=== PATIENT | female | born 1945 | race Caucasian/White ===

== ENCOUNTER 2018-01-22 09:19 | Day surgery (SDC) | payer OTHER ==
[2018-01-14 13:05] VITALS: BMI 26.5
--- NOTE | 2018-01-22 07:53 | HP ---
History & Physical Update - History History: No Change - Physical Physical: No Change - Assessment Assessment: No Change - Plan Plan: No Change (Initial H&P is located in her paper chart. No new complaints or medications. Lumbar back pain with associated LLE numbness/tingling. Here today for elective L5/S1 laminectomy)
[2018-01-22] MEDS ORDERED: oxyCODONE HCL 10 MG SUSTAINED ACTING TABLET PO STA (10:14)
[2018-01-22] MEDS ORDERED: DEXAMETHASONE SOD PHOSPHATE/PF 10 MG/ML SDV ONE (10:36)
[2018-01-22] MEDS ORDERED: BUPIVACAINE HCL/PF 2.5 MG/ML - 30 ML VIAL IJ ONE (10:37)
[2018-01-22] MEDS ORDERED: MIDAZOLAM HCL 2 MG/2 ML SINGLE DOSE VIAL ONE (10:37)
[2018-01-22] MEDS ORDERED: BUPIVACAINE HCL/PF (5 MG/ML) 30 ML VIAL IJ ONE (10:37)
[2018-01-22] MEDS ORDERED: PROMETHAZINE HCL 25 MG/1 ML VIAL IVPUSH PRN (10:38)
[2018-01-22] MEDS ORDERED: ONDANSETRON 4 MG/2 ML VIAL IVPUSH PRN (10:38)
[2018-01-22] MEDS ORDERED: oxyCODONE HCL 5 MG TABLET PO PRN (10:38)
[2018-01-22] MEDS ORDERED: LACTATED RINGERS SOLUTION 1,000 ML IV SCH (10:45)
[2018-01-22] MEDS ORDERED: ONDANSETRON 4 MG/2 ML VIAL ONE (10:55)
[2018-01-22] MEDS ORDERED: DESFLURANE GAS 240 ML BOTTLE IH ONE (10:57)
[2018-01-22] MEDS ORDERED: SEVOFLURANE 250 ML BTL ONE (10:58)
[2018-01-22] MEDS ORDERED: LIDOCAINE 1%/EPI 1:100000 (20 ML MULTI DOSE VIAL) ONE (11:20)
[2018-01-22] MEDS ORDERED: THROMBIN (BOVINE) 5,000 UNIT VIAL TP ONE (11:20)
[2018-01-22] MEDS ORDERED: GUM MASTIC/STORAX/MSAL/ALCOHOL 1 DRP DROPSBTL MC ONE (11:20)
[2018-01-22] MEDS ORDERED: methylPREDNISolone ACET (DEPO) 40 MG/1 ML VIAL ONE (11:20)
[2018-01-22] MEDS ORDERED: ePHEDrine SULFATE 50 MG/1 ML AMPULE ONE (11:45)
[2018-01-22] MEDS ORDERED: PHENYLEPHRINE HCL 10 MG/1 ML SINGLE DOSE VIAL ONE (11:47)
[2018-01-22] MEDS ORDERED: ceFAZolin SODIUM 1 GM VIAL ONE (11:51)
[2018-01-22] MEDS ORDERED: PROPOFOL 20 ML ONE ×2 (12:13→12:15)
--- NOTE | 2018-01-22 13:21 | OP ---
Operative Note - Note: Operative Date: 01/22/18 Pre-Operative Diagnosis: Lumbar stenosis with radiculopthy Operation: L5/S1 laminectomy, left discetomy Post-Operative Diagnosis: Same as Pre-op Surgeon: Garrick Sierra Civil Service Clerk: Carlos Jackson Anesthesiologist/VOCATIONAL NURSE LVN: Nas Willett Anesthesia: Spinal Specimens Removed: L5/S1 Disc Estimated Blood Loss (mls): 25 Fluid Volume Replaced (mls): 1,000 Operative Report Dictated: Yes
--- NOTE | 2018-01-22 13:22 | SURG ---
Surgery Coke Burner Note Coke Burner: Carlos Jackson PA-C Date of Service: 01/22/18 Diagnosis: L5/S1 spinal stenosis, herniated disc, radiculopathy Procedure: L5/S1 bilateral laminectomy with discectomy (left side) I was present for the entirety of the operative procedure. For further detail, please refer to operative report. Visit type - Case Type Case Type: Scheduled Admission - New patient This patient is new to me today: Yes Date on this admission: 01/22/18
--- NOTE | 2018-01-22 15:05 | OP ---
DATE OF OPERATION: 01/22/2018 PREOPERATIVE DIAGNOSIS: Spinal stenosis, L5-S1. POSTOPERATIVE DIAGNOSIS: Spinal stenosis, L5-S1. PROCEDURE PERFORMED: Laminectomy, L5-S1. SURGEON: Garrick Sierra MD VISITING HOUSEKEEPER: ROSE MARY Lugo ESTIMATED BLOOD LOSS: 50 mL. INTRAVENOUS FLUIDS: Per Anesthesia. ANESTHESIA: Spinal/TLIP. COMPLICATIONS: None. DISPOSITION: Patient brought to the PACU in stable condition. INDICATION FOR SURGERY: Patient is a 42-year-old female who has been suffering from pain from her back down her legs. X-rays and MRI were completed which showed that she had spinal stenosis at L5-S1. She had gone through an exhaustive course of treatment which included medications, physical therapy, as well as injections. Unfortunately, her pain continued to persist despite all this. At this point, risks, benefits, and alternatives are discussed, and the patient consented to surgery. DESCRIPTION OF PROCEDURE: Patient was brought to the operating room by the Anesthesia staff after appropriate patient identification was performed. Spinal anesthesia was given. A TLIP block was given. Patient was positioned prone onto the OR table with all areas of bony prominences well padded at this time. Two needles were placed in the back to jessica off the L5-S1 level. X-ray was taken to confirm this was correct. Needle was removed, and 10 mL of lidocaine with epinephrine was injected into her back. At the time, her back was prepped and draped in a sterile manner. At this point, an incision was made from the top of L5 down to the bottom of S1. Dissection was carried down to the fascia. The fascia was then split open at this time, and appropriate retractors were placed in. A spinal needle was placed onto the L5 lamina to jessica off the L5-S1 level. X-ray was taken to confirm this was correct. Needle was removed. The intraspinal segment of L5-S1 was removed. The microscope was brought in. At this point, portion of the L5-S1 lamina was removed. Flavum was identified and removed. A complete decompression was performed in such that by the end of the procedure both L5-S1 nerve roots appeared to be well decompressed. All bleeding was well controlled at this time. Steroids were placed over the nerve root. FloSeal was placed over that. The fascia was closed with a number 1 Vicryl suture. Subcutaneous tissue was closed with 2-0 Vicryl sutures. Skin was closed with 3-0 Monocryl suture. Dermabond was applied. Steri-Strips were applied. Sterile dressing was applied. Patient was placed supine on the OR bed and brought to the PACU in stable condition. GARRICK SIERRA M.D. DEB/[id number]
[2018-01-22 15:06] VITALS: TEMP 97.8
[2018-01-22 15:07] VITALS: BP 118/61; PULSE 79
--- NOTE | 2018-01-26 15:07 | PATH ---
Surgical Pathology Report Patient Name: GREGORIO GALE [facility]. Rec. #: [id number] /Age/Gender: 1945 (Age: 72) / F Account: [id number] Location: [facility] Taken: 01/22/2018 Received: 01/22/2018 Reported: 01/26/2018 Physicians: Garrick Sierra M.D. Specimen(s) Received L5-S1 DISC Clinical History Spinal stenosis Final Diagnosis DISC L5-S1, LAMINECTOMY: CARTILAGE WITH DEGENERATIVE CHANGES. BONE AND FIBROCOLLAGENOUS TISSUE WITH NO PATHOLOGIC FINDINGS. Electronically Signed Candy Ndiaye M.D. Gross Description Received in formalin labeled "L5-S1 disc," is a 1.1 x 0.7 x 0.2 cm aggregate of pulido fragments of fibrocartilaginous tissue. The specimen is entirely submitted in one cassette. /01/23/2018 saudi01/23/2018
== END 2018-01-22 15:42 | disposition home or self-care (01) ==
LOC: FASU 09:19
PROVIDERS: ATTEND Orthopaedic Surgery Orthopaedic Surgery of the Spine
PROC: 01NB0ZZ Release Lumbar Nerve, Open Approach (ICD-10-PCS; principal; 2018-01-22 12:00)
DX: M48.07 Spinal stenosis, lumbosacral region (principal)
CPT/HCPCS: 72100-TC-FY; 88304-TC; 94760